=== PATIENT | female | born 1960 | race African-American/Black ===

== ENCOUNTER 2016-08-14 10:13 | Emergency (ER) | payer OTHER ==
[~2016-08-14] VITALS: Ht 172.7 cm; Wt 121.6 kg
[~2016-08-14 10:13] MED LIST: AMLO5TAB4 PO; DICL100G7 TP; GUAI100G2 PO; LOSA1TAB7 PO; MELO15TA6 PO; METF500T9 PO
[2016-08-14] MEDS ORDERED: ONDANSETRON PF 4 MG/2 ML VIAL. IV PRN (10:30)
[2016-08-14] MEDS ORDERED: IV NORMAL SALINE 500ML BAG 500 ML IV ONE (10:30)
[2016-08-14 10:44] LABS: BILIRUBIN,URINE SMALL (NEG); GLUCOSE,URINE NEGATIVE (NEG); NITRITE,URINE NEGATIVE (NEG); PH,URINE 5.5; PROTEIN,URINE NEGATIVE (NEG-TRACE)
[2016-08-14] MEDS ORDERED: HYDROMORPHONE 2 MG/ML VIAL. IV PRN (10:45)
--- NOTE | 2016-08-14 10:56 | PHYS DOC ---
Past Medical History Past Medical History: Diabetes-Type II, Hypertension Past Surgical History: Hysterectomy, Other Additional Past Surgical Histo: bypass; breast reduction; dental Alcohol Use: Occasionally Drug Use: None Adult General Chief Complaint Chief Complaint: ABDOMINAL PAIN HPI HPI 55-year-old female presenting to the emergency department today with epigastric abdominal pain that started yesterday afternoon. She reports it is a sharp pain that does not radiate. It is moderate in nature. It is so she with nausea vomiting and watery diarrhea. She denies blood in her stool or vomit. It is nonbloody emesis. review of systems is negative for chest pain shortness of breath fevers chills. Positive for nausea and vomiting. All other review of systems is negative unless otherwise noted in history of present illness. Review of Systems Review of Systems SEE ABOVE. Current Medications Current Medications Current Medications Medications (Trade) Dose Ordered Sig/Hua Start Time Stop Time Status Last Admin Dose Admin Hydromorphone HCl (Dilaudid) 0.5 mg PRN Q1HR PRN 08/14/16 10:45 08/14/16 10:54 0.5 MG Ondansetron HCl (Zofran) 4 mg PRN Q30MIN PRN 08/14/16 10:30 08/14/16 10:54 4 MG Sodium Chloride (Iv Sodium Chloride 0.9% 500ml Bag) 500 ml @ 1,000 mls/hr Q30M ONCE 08/14/16 10:30 08/14/16 10:59 DC 08/14/16 10:53 1,000 MLS/HR Allergies Allergies Allergies Coded Allergies Type Severity Reaction Last Updated Verified iodine Allergy Severe Hives 10/18/13 Yes Milk Containing Products Allergy Intermediate 10/18/13 Yes fluconazole Allergy Intermediate Rash 10/18/13 Yes lisinopril Allergy Mild COUGH 10/18/13 Yes Physical Exam Physical Exam Constitutional: Well developed, well nourished, no acute distress, non-toxic appearance. HENT: Normocephalic, atraumatic, bilateral external ears normal, oropharynx moist, no oral exudates, nose normal. [] Eyes: PERRLA, EOMI, conjunctiva normal, no discharge. [] Neck: Normal range of motion, no tenderness, supple, no stridor. Cardiovascular:Heart rate regular rhythm, no murmur [] Lungs & Thorax: Bilateral breath sounds clear to auscultation Abdomen: Abdomen is soft and nontender. Negative McBurney's point. No guarding or rebound present. Equivocal Pena sign. Skin: Warm, dry, no erythema, no rash. [] Back: No tenderness, no CVA tenderness. [] Extremities: No tenderness, no cyanosis, no clubbing, ROM intact, no edema. Neurologic: Alert and oriented X 3, normal motor function, normal sensory function, no focal deficits noted. Psychologic: Affect normal, judgement normal, mood normal. [] Current Patient Data Vital Signs Vital Signs Date Time Temp Pulse Resp B/P Pulse Ox O2 Delivery O2 Flow Rate FiO2 08/14/16 10: 97.8 101 16 154/102 100 Room Air 97.8 Lab Values Laboratory Tests Test 08/14/16 10:30 08/14/16 10:40 Urine Collection Type Void Urine Color Yellow Urine Clarity Cloudy Urine pH 5.5 Urine Specific [place] 1.025 Urine Protein Negativemg/dL (NEG-TRACE) Urine Glucose (UA) Negativemg/dL (NEG) Urine Ketones (Stick) Negativemg/dL (NEG) Urine Blood Negative (NEG) Urine Nitrite Negative (NEG) Urine Bilirubin Small (NEG) Urine Urobilinogen Dipstick 1.0mg/dL (0.2 mg/dL) Urine Leukocyte Esterase Negative (NEG) Urine RBC 0/HPF (0-2) Urine WBC 1-4/HPF (0-4) Urine Squamous Epithelial Cells Many/LPF Urine Bacteria Mod/HPF (0-FEW) Urine Hyaline Casts Moderate/HPF Urine Mucus Mod/LPF White Blood Count 6.5x10^3/uL (4.0-11.0) Red Blood Count 4.27x10^6/uL (3.50-5.40) Hemoglobin 13.0g/dL (12.0-15.5) Hematocrit 39.3% (36.0-47.0) Mean Corpuscular Volume 92fL (79-100) Mean Corpuscular Hemoglobin 31pg (25-35) Mean Corpuscular Hemoglobin Concent 33g/dL (31-37) Red Cell Distribution Width 13.6% (11.5-14.5) Platelet Count 233x10^3/uL (140-400) Neutrophils (%) (Auto) 54% (31-73) Lymphocytes (%) (Auto) 37% (24-48) Monocytes (%) (Auto) 7% (0-9) Eosinophils (%) (Auto) 1% (0-3) Basophils (%) (Auto) 0% (0-3) Neutrophils # (Auto) 3.5x10^3uL (1.8-7.7) Lymphocytes # (Auto) 2.4x10^3/uL (1.0-4.8) Monocytes # (Auto) 0.5x10^3/uL (0.0-1.1) Eosinophils # (Auto) 0.1x10^3/uL (0.0-0.7) Basophils # (Auto) 0.0x10^3/uL (0.0-0.2) Sodium Level 144mmol/L (136-145) Potassium Level 5.0mmol/L (3.5-5.1) Chloride Level 106mmol/L (98-107) Carbon Dioxide Level 32mmol/L (21-32) Anion Gap 6 (6-14) Blood Urea Nitrogen 17mg/dL (7-20) Creatinine 0.9mg/dL (0.6-1.0) Estimated GFR (Cockcroft-Gault) 79.3 BUN/Creatinine Ratio 19 (6-20) Glucose Level 110mg/dL (70-99) H Calcium Level 9.3mg/dL (8.5-10.1) Total Bilirubin 0.4mg/dL (0.2-1.0) Aspartate Amino Transferase (AST) 28U/L (15-37) Alanine Aminotransferase (ALT) 31U/L (14-59) Alkaline Phosphatase 79U/L (46-116) Troponin I Quantitative < 0.017ng/mL (0.000-0.055) Total Protein 7.3g/dL (6.4-8.2) Albumin 3.6g/dL (3.4-5.0) Albumin/Globulin Ratio 1.0 (1.0-1.7) Lipase 303U/L (73-393) Laboratory Tests 08/14/16 10:40 Laboratory Tests 08/14/16 10:40 EKG EKG EKG shows sinus rhythm with regular rate. Normal intervals. Normal axis. ST segments are congruent. Not suggestive of ACS. Reviewed by myself.[] Radiology/Procedures Radiology/Procedures [] Course & Med Decision Making Course & Med Decision Making Pertinent Labs and Imaging studies reviewed. (See chart for details) [55-year-old female presenting to the emergency department today with epigastric /right upper quadrant abdominal pain. Vital signs showed mild tachycardia likely secondary to pain. Also hypertensive. Pertinent physical exam showed nontender abdomen. Ultrasound along with blood work and urinalysis obtained. Patient was given IV fluids nausea and pain meds in the emergency department. Blood work unremarkable. Ultrasound shows normal gallbladder. On reexamination her pain and improved. She was feeling better. She was in discharged home to follow up with her primary care physician over the next 2-3 days.] Dragon Disclaimer Dragon Disclaimer This electronic medical record was generated, in whole or in part, using a voice recognition dictation system. Departure Departure Impression: Primary Impression: Right upper quadrant abdominal pain Disposition: HOME, SELF-CARE Condition: STABLE Referrals: OLIVE GOLDMAN (PCP) Patient Instructions: Abdominal Pain Additional Instructions: Thank you for allowing us to participate in your care today. Followup with your primary care physician in 3 days if your symptoms do not improve. If you do not have a primary care provider you can ask for a list of our primary care providers. Return to the emergency department you have any new or concerning findings. This should be evaluated by the primary care physician and any necessary consulting services for continued management within a few days after discharge. Return to emergency room if you have any new or concerning symptoms including but not limited to fever, chills, nausea, vomiting, intractable pain, any new rashes, chest pain, shortness of air, uncontrolled bleeding, difficulty breathing, and/or vision loss. You may have been prescribed medication that can change in your level of thinking and ability to operate machinery. These medications include hydrocodone and Ativan. Also, Benadryl has been known to do this as well. Be sure to check with your pharmacist and ask if the medications you've prescribed can affect your level of consciousness. I recommend not operating heavy machinery or driving while on medication such as these. Scripts Famotidine (Pepcid)40 Mg [id number] Mg PO HS #14 TAB Prov:CLARISA ALMAGUER MD 08/14/16 Ondansetron (Zofran Odt)4 Mg Tab.rapdis1 Tab SL PRN Q8HRS PRN NAUSEA #6 TAB Prov:CLARISA ALMAGUER MD 08/14/16 Hydrocodone Bit/Acetaminophen (Hydrocodone-Apap 5-325 )1 Each Tablet1 Tab PO PRN Q6HRS PRN PAIN #15 TAB Be careful as this medication may cause you to be drowsy or tired. Do not drive on this medication. Prov:CLARISA ALMAGUER MD 08/14/16 CLARISA ALMAGUER MD Aug 14, 2016 10:56
[2016-08-14 11:04] LABS: BASO % 0 % (0-3); EOS % 1 % (0-3); HEMATOCRIT 39.3 % (36.0-47.0); LYMPH # 2.4 x10^3/uL (1.0-4.8); LYMPH % 37 % (24-48); MEAN CORPUSCULAR HEMOGLOBIN 31 pg (25-35); MEAN CORPUSCULAR HGB CONC 33 g/dL (31-37); MEAN CORPUSCULAR VOLUME 92 fL (79-100); MONO % 7 % (0-9); NEUT % 54 % (31-73); PLATELET COUNT 233 x10^3/uL (140-400); RED BLOOD COUNT 4.27 x10^6/uL (3.50-5.40); RED CELL DISTRIBUTION WIDTH 13.6 % (11.5-14.5); WHITE BLOOD COUNT 6.5 x10^3/uL (4.0-11.0)
[2016-08-14 11:06] LABS: BACTERIA,URINE MOD /HPF (0-FEW); RBC,URINE 0 /HPF (0-2); SQUAMOUS EPITHELIAL CELL,UR MANY /LPF
[2016-08-14 11:10] LABS: CALCIUM 9.3 mg/dL (8.5-10.1); CREATININE 0.9 mg/dL (0.6-1.0); GFR 79.3
[2016-08-14] MEDS ORDERED: LIRA0.6P SQ (11:10)
[2016-08-14] MEDS ORDERED: POTA20TA82 PO (11:10)
[2016-08-14] MEDS ORDERED: PHEN37.53 PO (11:10)
[2016-08-14 11:15] LABS: ALBUMIN 3.6 g/dL (3.4-5.0); TOTAL BILIRUBIN 0.4 mg/dL (0.2-1.0); TOTAL PROTEIN 7.3 g/dL (6.4-8.2)
--- NOTE | 2016-08-14 11:50 | RAD ---
Indication right upper quadrant abdominal pain. Grayscale imaging was performed. Examination was targeted to the right upper quadrant. No prior imaging of the abdomen is available. The visualized head and proximal body of the pancreas which are seen appear unremarkable. The more distal body and tail are obscured. Similarly the visualized abdominal aorta is unremarkable although the distal abdominal aorta is not seen. The visualized inferior vena cava appears grossly normal. There is increased attenuation of the ultrasound beam by the liver compatible with fatty infiltration. A focal mass lesion in the visualized liver is not seen. Gallbladder appears normal. The common bile duct diameter of approximately 3 mm is also normal. The right kidney appears unremarkable. IMPRESSION: Midline structures partially obscured. Normal gallbladder. Fatty infiltration of the liver
[2016-08-14 12:00] VITALS: BP 132/82
[2016-08-14] MEDS ORDERED: ONDA4TAB10 SL (12:19)
[2016-08-14] MEDS ORDERED: HYDR-2666 PO (12:19)
[2016-08-14] MEDS ORDERED: FAMO40TA57 PO (12:20)
--- NOTE | 2016-08-15 06:10 | EKG ---
[facility] [address] [place] [address] Test Date: 2016-08-14 Test Time: 10:24:31 Pat Name: SHAHNAZ RUFFIN Department: Room: Gender: F Filter Tender: : 1960 Requested By: CLARISA ALMAGUER Order Number: [id number] Reading MD: Anita Wagner Measurements Intervals [place] Rate: 86 P: 52 IN: 190 QRS: -2 QRSD: 88 T: 36 QT: 380 QTc: 458 Interpretive Statements SINUS RHYTHM LEFTWARD AXIS OTHERWISE NORMAL ECG RI6.01 No previous ECG available for comparison Electronically Signed On 08-15-2016 19:45:04 CDT by Anita Wagner
== END 2016-08-14 13:11 | disposition home or self-care (01) ==
LOC: ER 10:13
DX: R10.11 Right upper quadrant pain (principal); R10.13 Epigastric pain; R11.2 Nausea with vomiting, unspecified; R00.0 Tachycardia, unspecified; R19.7 Diarrhea, unspecified; E11.9 Type 2 diabetes mellitus without complications; I10 Essential (primary) hypertension; Z88.8 Allergy status to other drugs, medicaments and biological substances; Z88.1 Allergy status to other antibiotic agents; Z91.011 Allergy to milk products; Z90.710 Acquired absence of both cervix and uterus
CPT/HCPCS: 36415; 76705; 80053; 81001; 83690; 84484; 85027; 93005; 96361; 96374; 96375; 99285; J1170; J2405; J7040

== ENCOUNTER 2017-07-25 13:46 | Emergency (ER) | payer OTHER | END 2017-07-25 16:01 | disposition home or self-care (01) | LOC: ER 13:46 | DX: S92.515A Nondisplaced fracture of proximal phalanx of left lesser toe(s), initial encounter for closed fracture (principal); E11.9 Type 2 diabetes mellitus without complications; I10 Essential (primary) hypertension; Z90.710 Acquired absence of both cervix and uterus; Z88.8 Allergy status to other drugs, medicaments and biological substances; Z91.041 Radiographic dye allergy status; Z91.011 Allergy to milk products; W23.0XXA Caught, crushed, jammed, or pinched between moving objects, initial encounter; Y93.89 Activity, other specified; Y99.8 Other external cause status; Y92.89 Other specified places as the place of occurrence of the external cause | CPT/HCPCS: 73630; 99284 ==

== ENCOUNTER 2018-02-03 14:03 | Emergency (ER) | payer OTHER ==
[~2018-02-03] VITALS: Ht 172.7 cm; Wt 120.2 kg
[~2018-02-03 14:03] MED LIST changes: +DICL100G18 TP; -DICL100G7 TP; +FAMO40TA57 PO; +HYDR-2758 PO; +HYDR-971 PO; +LIRA0.6P SQ; +ONDA4TAB10 SL; +PHEN37.53 PO; +POTA20TA82 PO
[2018-02-03] MEDS ORDERED: NAPROXEN 500 MG TABLET PO STA (15:24)
[2018-02-03 15:30] VITALS: BP 135/66
--- NOTE | 2018-02-03 15:45 | PHYS DOC ---
Past Medical History Past Medical History: Diabetes-Type II, Hypertension Past Surgical History: Hysterectomy, Other Additional Past Surgical Histo: bypass; breast reduction; dental Alcohol Use: None Drug Use: None Adult General Chief Complaint Chief Complaint: FOOT INJURY PAIN HPI HPI Patient is a 57 year old female who presents to the emergency department with complaints of left foot and left fourth toe pain after feeling a pop in her foot while exercising today. She denies any blunt injury. She denies any ankle pain, swelling, numbness, tingling, or bruising. States that the pain increases when she bears weight on her foot. Currently, she reports her pain is a 7 out of 10 on the pain scale, she took 2 Tylenol prior to arrival to the emergency room. Review of Systems Review of Systems Constitutional: Denies fever or chills [] Musculoskeletal: Reports left foot and left fourth toe pain after feeling a pop Integument: Denies rash or skin lesions [] Neurologic: Denies headache, focal weakness or sensory changes [] All other systems were reviewed and found to be within normal limits, except as documented in this note. Current Medications Current Medications Current Medications Medications (Trade) Dose Ordered Sig/Hua Start Time Stop Time Status Last Admin Dose Admin Naproxen (Naprosyn) 500 mg 1X STAT 02/03/18 15:24 02/03/18 15:29 DC 02/03/18 15:44 500 MG Allergies Allergies Allergies Coded Allergies Type Severity Reaction Last Updated Verified iodine Allergy Severe Hives 10/18/13 Yes Milk Containing Products Allergy Intermediate 10/18/13 Yes fluconazole Allergy Intermediate Rash 10/18/13 Yes lisinopril Allergy Mild COUGH 10/18/13 Yes Physical Exam Physical Exam Constitutional: Well developed, well nourished, no acute distress, non-toxic appearance, obese. [] HENT: Normocephalic, atraumatic, bilateral external ears normal, nose normal. [] Eyes: Normal Lungs & Thorax: Respirations even and unlabored Skin: Warm, dry, no erythema, no rash. [] Extremities: No cyanosis, no clubbing, ROM intact, no edema; L fourth toe tenderness and left lateral foot tenderness to palpation [] Neurologic: Alert and oriented X 3, normal motor function, normal sensory function, no focal deficits noted. [] Psychologic: Affect normal, judgement normal, mood normal. [] Current Patient Data Vital Signs Vital Signs Date Time Temp Pulse Resp B/P (MAP) Pulse Ox O2 Delivery O2 Flow Rate FiO2 02/03/18 15:30 98.7 103 16 135/66 (89) 99 98.7 EKG EKG [] Radiology/Procedures Radiology/Procedures PROCEDURE: FOOT LEFT 3V Left foot, 3 views, 02/03/2018: HISTORY: Fourth toe injury No fracture or dislocation is identified. There are mild scattered degenerative changes. Arterial calcifications are evident. IMPRESSION: No acute bony abnormality is detected. [] Course & Med Decision Making Course & Med Decision Making Pertinent Labs and Imaging studies reviewed. (See chart for details) L foot sprain Patient was given a naproxen in the department for relief of her pain. X-ray revealed no fracture or dislocation. Prescription for naproxen written. An satish wrap was applied to the Left foot. Patient verbalized an understanding of home care, medications, follow-up, and return to ED instructions and was in agreement with the plan of care. [] Dragon Disclaimer Dragon Disclaimer This electronic medical record was generated, in whole or in part, using a voice recognition dictation system. Departure Departure Impression: Primary Impression: Sprain of foot, left Additional Impression: Left foot pain Disposition: 01 HOME, SELF-CARE Condition: STABLE Referrals: SWAPNA DEL TORO [employer] WORKER (PCP) Patient Instructions: Foot Sprain-Brief Additional Instructions: Fill prescription(s) and use as directed. Recommend application of ice, elevation, and rest of affected extremity. Wear the satish wrap that was provided in the ER. Follow up with your PCP if symptoms persist. Return to the ER if your symptoms worsen. Scripts Naproxen (NAPROXEN) 500 Mg Tablet 1 TAB PO BID for 10 Days, #20 TAB 0 Refills Prov: SCOT RIZVI APRN 02/03/18 Problem Qualifiers SCOT RIZVI [employer]BER Feb 03, 2018 15:45
--- NOTE | 2018-02-03 16:04 | RAD ---
Left foot, 3 views, 02/03/2018: HISTORY: Fourth toe injury No fracture or dislocation is identified. There are mild scattered degenerative changes. Arterial calcifications are evident. IMPRESSION: No acute bony abnormality is detected. Electronically signed by: Henok Arndt MD (02/03/2018 4:00 PM) [facility]
[2018-02-03] MEDS ORDERED: NAPR-514 PO (16:13)
== END 2018-02-03 16:19 | disposition home or self-care (01) ==
LOC: ER 14:03
DX: S93.602A Unspecified sprain of left foot, initial encounter (principal); E11.9 Type 2 diabetes mellitus without complications; I10 Essential (primary) hypertension; Z91.041 Radiographic dye allergy status; Z91.011 Allergy to milk products; Z88.8 Allergy status to other drugs, medicaments and biological substances; X50.9XXA Other and unspecified overexertion or strenuous movements or postures, initial encounter; Y93.B9 Activity, other involving muscle strengthening exercises; Y92.89 Other specified places as the place of occurrence of the external cause; Y99.8 Other external cause status
CPT/HCPCS: 73630; 99284

== ENCOUNTER 2020-11-25 09:54 | Emergency (ER) | payer BC, OTHER ==
[~2020-11-25] VITALS: Ht 172.7 cm; Wt 100.7 kg
[~2020-11-25 09:54] MED LIST changes: -DICL100G18 TP; +DICL100G54 TP; -HYDR-2758 PO; +HYDR-2761 PO; +HYDR-3164 PO; -HYDR-971 PO; +METF-658 PO; -METF500T9 PO; +NAPR-514 PO; +POTA20TA4 PO; -POTA20TA82 PO
[2020-11-25] MEDS ORDERED: ACETAMINOPHEN 500 MG TABLET PO ONE (10:45)
[2020-11-25 10:51] LABS: BASO % 0 % (0-3); EOS % 0 % (0-3); HEMATOCRIT 40.5 % (36.0-47.0); HEMOGLOBIN 13.5 g/dL (12.0-15.5); LYMPH # 0.3 x10^3/uL (1.0-4.8); LYMPH % 4 % (24-48); MEAN CORPUSCULAR HEMOGLOBIN 32 pg (25-35); MEAN CORPUSCULAR HGB CONC 33 g/dL (31-37); MEAN CORPUSCULAR VOLUME 98 fL (79-100); MONO # 1.1 x10^3/uL (0.0-1.1); MONO % 13 % (0-9); NEUT % 83 % (31-73); PLATELET COUNT 254 x10^3/uL (140-400); RED BLOOD COUNT 4.15 x10^6/uL (3.50-5.40); RED CELL DISTRIBUTION WIDTH 12.6 % (11.5-14.5); WHITE BLOOD COUNT 8.4 x10^3/uL (4.0-11.0)
[2020-11-25] MEDS ORDERED: ONDANSETRON PF 4 MG/2 ML VIAL. ONE (10:51)
[2020-11-25] MEDS: MORPHINE SULFATE 4 MG/ML INJ. IV/SQ PRN ×2 (10:57→10:58)
[2020-11-25] MEDS: IV NORMAL SALINE 1000ML BAG 1,000 ML IV SCH ×3 (10:57→14:13)
[2020-11-25] MEDS ORDERED: ONDANSETRON PF 4 MG/2 ML VIAL. IVP ONE (11:00)
[2020-11-25 11:07] LABS: CALCIUM 8.6 mg/dL (8.5-10.1); CREATININE 1.2 mg/dL (0.6-1.0); GFR 55.8; POTASSIUM 3.7 mmol/L (3.5-5.1)
[2020-11-25 11:12] LABS: ALBUMIN 3.3 g/dL (3.4-5.0); ALBUMIN/GLOBULIN RATIO 0.9 (1.0-1.7); MAGNESIUM 1.7 mg/dL (1.8-2.4); TOTAL BILIRUBIN 0.4 mg/dL (0.2-1.0)
--- NOTE | 2020-11-25 11:15 | EKG ---
[facility] [address] [place] [address] Test Date: 2020-11-25 Test Time: 10:26:16 Pat Name: SHAHNAZ RUFFIN Department: Room: Gender: F Bus Steward: : 1960 Requested By: ESHA LOTT Order Number: [id number] Reading MD: Cornell Perez Measurements Intervals [place] Rate: 132 P: 236 [place]: 106 QRS: -5 QRSD: 86 T: 52 QT: 328 QTc: 490 Interpretive Statements SINUS TACHYCARDIA LEFT ATRIAL ABNORMALITY LEFTWARD AXIS QRS(T) CONTOUR ABNORMALITY CONSISTENT WITH INFERIOR INFARCT PROBABLY OLD ABNORMAL ECG Electronically Signed On 11-25-2020 11:44:45 CDT by Cornell Perez
--- NOTE | 2020-11-25 11:16 | RAD ---
AP chest. HISTORY: Fever AP view was taken of the chest. There is a nodule in the left upper lobe which is fairly dense probab ly calcified granuloma. Heart is normal in size. There is no pleural effusion. There are no confluent infiltrates. There is hypertrophic change in the spine. IMPRESSION: 1. Left granuloma. 2. No acute infiltrates. Electronically signed by: Huseyin Beltran MD (11/25/2020 11:14 AM) [id number]
[2020-11-25 11:18] LABS: % BANDS 14 % (0-9); % EOS 1 % (0-5); % LYMPHS 9 % (24-48); % MONOS 4 % (0-10); % SEGS 72 % (35-66); PLT ESTIMATE ADEQUATE (ADEQUATE)
--- NOTE | 2020-11-25 11:20 | PHYS DOC ---
Past Medical History Past Medical History: Diabetes-Type II, Hypertension (ESHA LOTT Sol SHIP LOADER) Past Surgical History: Hysterectomy, Other Additional Past Surgical Histo: GASTRIC bypass; breast reduction; dental (ESHA LOTT SHIP LOADER) Smoking Status: Never Smoker Alcohol Use: None Drug Use: None (ESHA LOTT Sol SHIP LOADER) General Adult EDM: Chief Complaint: HEADACHE HPI: HPI: Patient is a 60 year old female with history of diabetes type 2, hypertension, gastric bypass, bilateral breast reduction at the age of 19, who presents to the ED today with multiple complaints. Patient is complaining of 10 out of 10 posterior sharp headache radiating to the forehead, symptoms began at 2 AM. Patient denies symptoms waking her up. She is also complaining of right upper quadrant abdominal pain as well as bilateral lower abdominal pain, symptoms began at 2 AM as well with nausea and vomiting. He is also complaining of a chronic cough, nasal congestion and sore throat from seasonal allergies. Patient denies anything specifically exacerbating or relieving her symptoms. Denies any fever. She states she has not had a similar headache before. Denies neck pain. (ESHA LOTT Sol SHIP LOADER) Review of Systems: Review of Systems: Constitutional: Denies fever or chills. [] Eyes: Denies change in visual acuity. [] HENT: Reports chronic nasal congestion and sore throat. [] Respiratory: Reports chronic cough, denies shortness of breath. [] Cardiovascular: Denies chest pain or edema. [] GI: Reports abdominal pain, nausea vomiting, denies bloody stools or diarrhea. [] : Denies dysuria. [] Musculoskeletal: Denies back pain or joint pain. [] Integument: Denies rash. [] Neurologic: Reports headache, denies focal weakness or sensory changes. [] Psychiatric: Denies depression or anxiety. [] (BRENNANESHA Mccoy SHIP LOADER) Heart Score: C/O Chest Pain: N/A Risk Factors: Risk Factors: DM, Current or recent (<one month) smoker, HTN, HLP, family history of CAD, obesity. Risk Scores: Score 0 - 3: 2.5% MACE over next 6 weeks - Discharge Home Score 4 - 6: 20.3% MACE over next 6 weeks - Admit for Clinical Observation Score 7 - 10: 72.7% MACE over next 6 weeks - Early Invasive Strategies (ESHA LOTT Sol SHIP LOADER) Current Medications: Current Medications Medications (Trade) Dose Ordered Sig/[facility] Start Time Stop Time Status Last Admin Dose Admin Acetaminophen (Tylenol) 1,000 mg 1X ONCE 11/25/20 10:45 11/25/20 10:47 DC 11/25/20 10:56 1,000 MG Morphine Sulfate (Morphine Sulfate) 4 mg PRN Q15MIN PRN 11/25/20 10:45 11/26/20 10:44 Ondansetron HCl (Zofran) 4 mg 1X ONCE 11/25/20 11:00 11/25/20 11:01 DC 11/25/20 10:57 4 MG Sodium Chloride 1,000 ml @ 3,030 mls/hr Q20M 11/25/20 10:45 11/25/20 11:45 11/25/20 10:57 3,030 MLS/HR (ESHA LOTT Sol SHIP LOADER) Allergies: Allergies: Allergies Coded Allergies Type Severity Reaction Last Updated Verified iodine Allergy Severe Hives 10/18/13 Yes Milk Containing Products Allergy Intermediate 10/18/13 Yes fluconazole Allergy Intermediate Rash 10/18/13 Yes Iodine and Iodide Containing Produc Allergy Unknown UNKNOWN 11/25/20 Yes lisinopril Adverse Reaction Mild COUGH 11/25/20 Yes (ESHA LOTT Sol SHIP LOADER) Physical Exam: PE: Constitutional: Well developed, well nourished, no acute distress, non-toxic appearance. [] HENT: Normocephalic, atraumatic, bilateral external ears normal, oropharynx moist, no oral exudates, nose normal. [] Eyes: PERRLA, EOMI, conjunctiva normal, no discharge. [] Neck: Normal range of motion, no tenderness, supple, no stridor. [] Cardiovascular:Heart rate regular rhythm, no murmur [] Lungs & Thorax: Bilateral breath sounds clear to auscultation [] Abdomen: Bowel sounds normal, soft, no tenderness, no masses, no pulsatile masses. [] Skin: Warm, dry, no erythema, no rash. [] Back: No tenderness, no CVA tenderness. [] Extremities: No tenderness, no cyanosis, no clubbing, ROM intact, no edema. [] Neurologic: Alert and oriented X 3, normal motor function, normal sensory function, no focal deficits noted. Cranial nerves II through XII Psychologic: Affect normal, judgement normal, mood normal. [] (ESHA LOTT APRN) Current Patient Data: Labs: Laboratory Tests Test 11/25/20 10:34 White Blood Count 8.4 x10^3/uL (4.0-11.0) Red Blood Count 4.15 x10^6/uL (3.50-5.40) Hemoglobin 13.5 g/dL (12.0-15.5) Hematocrit 40.5 % (36.0-47.0) Mean Corpuscular Volume 98 fL (79-100) Mean Corpuscular Hemoglobin 32 pg (25-35) Mean Corpuscular Hemoglobin Concent 33 g/dL (31-37) Red Cell Distribution Width 12.6 % (11.5-14.5) Platelet Count 254 x10^3/uL (140-400) Neutrophils (%) (Auto) 83 % (31-73) H Lymphocytes (%) (Auto) 4 % (24-48) L Monocytes (%) (Auto) 13 % (0-9) H Eosinophils (%) (Auto) 0 % (0-3) Basophils (%) (Auto) 0 % (0-3) Neutrophils # (Auto) 7.0 x10^3/uL (1.8-7.7) Lymphocytes # (Auto) 0.3 x10^3/uL (1.0-4.8) L Monocytes # (Auto) 1.1 x10^3/uL (0.0-1.1) Eosinophils # (Auto) 0.0 x10^3/uL (0.0-0.7) Basophils # (Auto) 0.0 x10^3/uL (0.0-0.2) Platelet Estimate Pending Sodium Level 137 mmol/L (136-145) Potassium Level 3.7 mmol/L (3.5-5.1) Chloride Level 102 mmol/L (98-107) Carbon Dioxide Level 22 mmol/L (21-32) Anion Gap 13 (6-14) Blood Urea Nitrogen 27 mg/dL (7-20) H Creatinine 1.2 mg/dL (0.6-1.0) H Estimated GFR (Cockcroft-Gault) 55.8 BUN/Creatinine Ratio 23 (6-20) H Glucose Level 196 mg/dL (70-99) H Calcium Level 8.6 mg/dL (8.5-10.1) Magnesium Level 1.7 mg/dL (1.8-2.4) L Total Bilirubin 0.4 mg/dL (0.2-1.0) Aspartate Amino Transferase (AST) 13 U/L (15-37) L Alanine Aminotransferase (ALT) 17 U/L (14-59) Alkaline Phosphatase 65 U/L (46-116) Total Protein 7.0 g/dL (6.4-8.2) Albumin 3.3 g/dL (3.4-5.0) L Albumin/Globulin Ratio 0.9 (1.0-1.7) L Laboratory Tests 11/25/20 10:34 Laboratory Tests 11/25/20 10:34 Vital Signs: Vital Signs Date Time Temp Pulse Resp B/P (MAP) Pulse Ox O2 Delivery O2 Flow Rate FiO2 11/25/20 10:12 99.6 143 20 147/78 (89) 98 Room Air 99.6 (ESHA LOTT SHIP LOADER) EKG: EK interpreted by Dr. Bell sinus tachycardia heart rate 132 no STEMI [] (ESHA LOTT SHIP LOADER) Radiology/Procedures: Radiology/Procedures: []PROCEDURE: PORTABLE CHEST 1V AP chest. HISTORY: Fever AP view was taken of the chest. There is a nodule in the left upper lobe which is fairly dense probably calcified granuloma. Heart is normal in size. There is no pleural effusion. There are no confluent infiltrates. There is hypertrophic change in the spine. IMPRESSION: 1. Left granuloma. 2. No acute infiltrates. Electronically signed by: Huseyin Beltran MD (11/25/2020 11:14 AM) [id number] DICTATED and SIGNED BY: HUSEYIN BELTRAN MD DATE: 11/25/20 [id number] 0 (ESHA LOTT SHIP LOADER) Course & Med Decision Making: Course & Med Decision Making Pertinent Labs and Imaging studies reviewed. (See chart for details) This is a 60-year-old female patient presenting to the ED today with multiple complaints including headache, abdominal pain, nausea vomiting since 2 AM this morning. Also complaining of chronic nasal congestion, cough and sore throat from seasonal allergies. Chest x-ray interpreted by radiologist was negative for any infiltrates, noted for left granuloma. CT of the abdomen and pelvic is negative for any acute findings, CBC with a normal WBC, patient noted for bandemia around 14, lactic is normal. UA is negative, do not have a source for patient's elevated bands. She wanted to go home she states she feels better after IV fluids. She was discharged to home, i nstructed to push fluids. She has a PCP. She stated she will follow-up as an outpatient. (ESHA LOTT APRN) Dragon Disclaimer: Dragon Disclaimer: This electronic medical record was generated, in whole or in part, using a voice recognition dictation system. (ESHA LOTT APRN) Departure Departure Impression: Primary Impression: Right upper quadrant abdominal pain Additional Impressions: Dehydration Nausea and vomiting Qualified Codes: R11.2 - Nausea with vomiting, unspecified Diarrhea Qualified Codes: R19.7 - Diarrhea, unspecified Headache Qualified Codes: R51.9 - Headache, unspecified Disposition: HOME / SELF CARE / HOMELESS Condition: STABLE Referrals: ANTHONY RICHARD MD (PCP) follow up with your doctor as soon possible Patient Instructions: Dehydration, Adult, [id number], Diarrhea, Nausea and Vomiting, [id number] Additional Instructions: You were evaluated in the emergency room, your CT of the head, abdomen and pelvis were negative for any acute findings. You were dehydrated. Push fluids, follow-up with your doctor in the course of this week. Take Zofran as needed for nausea or vomiting. Scripts Ondansetron (ONDANSETRON ODT) 4 Mg Tab.rapdis 1 TAB PO PRN Q6-8HRS, #16 TAB Prov: ESHA LOTT APRN 11/25/20 Attending Signature I have participated in the care of this patient and I have reviewed and agree with all pertinent clinical information above including history, exam, and recommendations. (SAMM BELL DO) ESHA LOTT APRN Nov 25, 2020 11:20 SAMM BELL DO Nov 25, 2020 17:48
--- NOTE | 2020-11-25 11:34 | RAD ---
INDICATION: Reason: headache / Spl. Instructions: / History: COMPARISON: None. TECHNIQUE: Axial CT images obtained through the head without intravenous contrast. One or more of the following individualized dose reduction techniques were utilized for this examinat ion: 1. Automated exposure control; 2. Adjustment of the mA and/or kV according to patient size; 3 . Use of iterative reconstruction technique. FINDINGS: No intracranial hemorrhage. No midline shift. Basal cisterns patent. Ventricles and sulci are unremarkable. No acute osseous abnormality. Orbits and paranasal sinuses unremarkable. IMPRESSION: * No acute intracranial hemorrhage. * Scattered regions of low density of the white matter. Nonspecific but can be from small vessel isc hemic disease, sequela of migraine or demyelination. This is a common finding. * Calcific atherosclerosis. Electronically signed by: Nav Swan MD (11/25/2020 11:31 AM) [id number]
--- NOTE | 2020-11-25 11:45 | RAD ---
INDICATION: Reason: abd pain / Spl. Instructions: / History: . COMPARISON: None. TECHNIQUE: Axial CT images obtained through the abdomen and pelvis without contrast. One or more of the following individualized dose reduction techniques were utilized for this examinat ion: 1. Automated exposure control; 2. Adjustment of the mA and/or kV according to patient size; 3 . Use of iterative reconstruction technique. FINDINGS: Linear opacity at the left lung base could be seen with scarring or atelectasis. Gastric bypass changes. Multifocal calcific atherosclerosis. No intrahepatic bile duct dilation. No peripancreatic fluid collection. Splenic calcified granulomas. No hydronephrosis. Urinary bladder is partially distended. No periappendiceal inflammatory changes. No dilated loops of bowel to suggest obstruction. Degenerative changes the spine with multilevel central canal and neural foraminal stenosis. Lucent lesion at the T12 vertebral body of the left measuring up to about 17 mm. Most common cause wo uld be vertebral body hemangioma in the absence of known neoplasm. Degenerative changes the right greater than left hip. IMPRESSION: * No evidence of bowel obstruction or appendicitis. * No hydronephrosis Electronically signed by: Nav Swan MD (11/25/2020 11:43 AM) [id number]
[2020-11-25] MEDS ORDERED: HYDR-2761 PO ×3 (13:19→13:57)
[2020-11-25 13:49] LABS: BILIRUBIN,URINE NEGATIVE (NEG); CLARITY,URINE CLOUDY; COLOR,URINE YELLOW; NITRITE,URINE NEGATIVE (NEG); PROTEIN,URINE NEGATIVE (NEG-TRACE); UROBILINOGEN,URINE 0.2 mg/dL (0.2 mg/dL)
[2020-11-25 14:40] LABS: HYALINE CASTS, URINE MODERATE /HPF
[2020-11-25 14:41] LABS: BACTERIA,URINE FEW /HPF (0-FEW); RBC,URINE 0 /HPF (0-2); WBC,URINE 0 /HPF (0-4)
[2020-11-25 14:45] VITALS: BP 107/52
[2020-11-25 14:54] LABS: BARBITURATES NEG (NEG); BENZODIAZEPINES NEG (NEG); CANNABINOIDS NEG (NEG); COCAINE NEG (NEG); METHADONE NEG (NEG); OPIATES NEG (NEG); PHENCYCLIDINE NEG (NEG)
[2020-11-25 14:56] LABS: AMPHETAMINE/METHAMPHETAMINE POS (NEG)
[2020-11-25] MEDS ORDERED: ONDA4TAB12 PO (14:56)
[2020-11-25] MEDS ORDERED: KETOROLAC 30 MG/ML VIAL. IVP ONE (15:00)
== END 2020-11-25 15:20 | disposition home or self-care (01) ==
LOC: ER 09:54
DX: E86.0 Dehydration (principal); R51.9 Headache, unspecified; R11.2 Nausea with vomiting, unspecified; R19.7 Diarrhea, unspecified; E11.9 Type 2 diabetes mellitus without complications; I10 Essential (primary) hypertension; Z90.710 Acquired absence of both cervix and uterus; Z98.84 Bariatric surgery status; Z91.041 Radiographic dye allergy status; Z88.8 Allergy status to other drugs, medicaments and biological substances; Z91.011 Allergy to milk products
CPT/HCPCS: 36415; 70450; 71045; 74176; 80053; 80307; 81001; 83605; 83735; 83880; 84145; 84443; 84484; 85007; 85025; 87040; 93005; 96361; 96374; 96375; 99285; J1885; J2405; J7030; J2270